=== PATIENT | female | born 2005 | race Hispanic/Latino ===

== ENCOUNTER 2025-06-11 09:57 | Inpatient (IN) | payer OTHER ==
[2025-06-10 12:48] LABS: Hematocrit 35.2 % (34.9-44.5); Hemoglobin 11.6 g/dL (12.0-15.5); Mean Corpuscular Hemoglobin 28.7 pg (27.0-33.0); Mean Corpuscular Volume 87.1 fL (81.6-98.3); Platelet Count 294 10x3/uL (150-450); Red Blood Cell (RBC) Count 4.04 10x6/uL (3.90-5.03); White Blood Cell (WBC) Count 7.22 10x3/uL (3.5-10.5)
[2025-06-10 13:35] LABS: HIV (1/2) Antibody/Antigen Non-Reactive (NonReactive); HIV 1/2 INDEX 0.10 S/CO (<1.00); Hep B Surf Ag Non-Reactive S/CO (NonReactive)
[2025-06-10 13:36] LABS: Syphilis Antibody Index 0.03 S/CO (<1.00 Non-Reactive)
[~2025-06-11 09:57] MED LIST: Azithromycin 500 MG in Sodium Chloride 0.9% 250 ML 250 ML IVPB SCH; Bicitra 30 ML UDCUP PO PRN; Carboprost 250 MCG/ML AMP IM PRN; Diphenoxylate HCl/Atropine Tablet PO PRN; Methylergonovine 0.2 MG/ML VIAL IM PRN; Ondansetron PF 4 MG/2 ML Vial IVP PRN; Oxytocin 30 units/NS 500 ML 500 ML IV SCH; Tranexamic Acid 1,000 MG/10 ML VIAL IVP PRN; hydrALAZINE 20 MG/ML VIAL SLOW IVP PRN
[2025-06-11 10:24] VITALS: BMI 32.8
[2025-06-11] MEDS ORDERED: Ondansetron PF 4 MG/2 ML Vial IVP PRN ×3 (10:40→15:51)
[2025-06-11] MEDS ORDERED: diphenhydrAMINE 50 MG/ML VIAL IVP PRN (10:40)
[2025-06-11] MEDS ORDERED: Meperidine HCl/PF 25 MG (1 mL) VIAL SLOW IVP PRN (10:40)
[2025-06-11] MEDS ORDERED: Communication Order-Pharmacy FS SCH (10:45)
[2025-06-11] MEDS: Famotidine/PF 20 mg/2ml Vial SLOW IVP PRN (11:25)
[2025-06-11] MEDS ORDERED: hydrALAZINE 20 MG/ML VIAL SLOW IVP PRN (15:51)
[2025-06-11] MEDS ORDERED: Oxytocin 30 units/NS 500 ML 500 ML IV SCH (15:51)
[2025-06-11] MEDS ORDERED: Boostrix 0.5 ML (Tdap) VIAL (>/=7 yrs of age) IM ONE (15:51)
[2025-06-11] MEDS ORDERED: Lanolin Ointment 7 GM TUBE TOP PRN (15:51)
[2025-06-11] MEDS ORDERED: HYDROcodone/Acetaminophen 5/325 mg Tablet PO PRN (15:51)
[2025-06-11] MEDS ORDERED: Methylergonovine 0.2 MG/ML VIAL IM PRN (15:51)
[2025-06-11] MEDS: Ondansetron PF 4 MG/2 ML Vial ONE (16:39)
[2025-06-11] MEDS: Phenylephrine 40 MG/NS 250 ML 250 ML ONE (16:39)
[2025-06-11] MEDS: Oxytocin 10 UNITS/ML VIAL ONE ×2 (16:39→16:40)
[2025-06-11] MEDS: PHENYLEPHRINE-NS 100 MCG/ML 10 ML SYRINGE ONE (16:39)
[2025-06-11] MEDS: Ketorolac Tromethamine 30 MG (1 mL) VIAL ONE (16:39)
[2025-06-11] MEDS: Ketorolac Tromethamine 30 MG (1 mL) VIAL IVP PRN (18:05)
[2025-06-11] MEDS ORDERED: Ketorolac Tromethamine 30 MG (1 mL) VIAL IVP SCH (19:30)
[2025-06-11] MEDS: Ferrous Sulfate 325 MG TAB PO SCH (22:05)
[2025-06-12] MEDS: diphenhydrAMINE 25 MG CAP PO PRN (00:31)
[2025-06-12] MEDS: Simethicone Chewable 80 MG TAB PO PRN (05:45)
[2025-06-12 05:53] LABS: Hematocrit 29.5 % (34.9-44.5); Hemoglobin 9.6 g/dL (12.0-15.5); Mean Corpuscular Volume 88.6 fL (81.6-98.3); Red Blood Cell (RBC) Count 3.33 10x6/uL (3.90-5.03); White Blood Cell (WBC) Count 7.71 10x3/uL (3.5-10.5)
[2025-06-12 05:54] LABS: Mean Corpuscular Hemoglobin 28.8 pg (27.0-33.0); Platelet Count 231 10x3/uL (150-450)
[2025-06-12] MEDS: HYDROcodone/Acetaminophen 5/325 mg Tablet PO PRN (14:08)
[2025-06-12] MEDS: Milk Of Magnesia 30 ML UDCUP PO SCH (16:55)
[2025-06-12] MEDS: Ibuprofen 800 MG TAB PO SCH (20:39)
[2025-06-13] MEDS ORDERED: Milk Of Magnesia 30 ML UDCUP PO PRN (09:16)
[2025-06-14 08:16] VITALS: BP 120/66; TEMP 98.1
== END 2025-06-14 11:30 | disposition home or self-care (01) | DRG 785 ==
LOC: CSHLD 09:57 → CSHPP 15:35
PROVIDERS: ADMIT Family Medicine; ATTEND Family Medicine
PROC: 10D00Z1 Extraction of Products of Conception, Low, Open Approach (ICD-10-PCS; principal; 2025-06-11)
PROC: 0UB70ZZ Excision of Bilateral Fallopian Tubes, Open Approach (ICD-10-PCS; 2025-06-11)
DX: O26.643 Intrahepatic cholestasis of pregnancy, third trimester (principal); O99.214 Obesity complicating childbirth; O99.02 Anemia complicating childbirth; O99.52 Diseases of the respiratory system complicating childbirth; Z37.0 Single live birth; Z30.2 Encounter for sterilization; O99.344 Other mental disorders complicating childbirth; F32.A Depression, unspecified; Z3A.37 37 weeks gestation of pregnancy; Z87.59 Personal history of other complications of pregnancy, childbirth and the puerperium
CPT/HCPCS: 51702; 85027; 86780; 86850; 86900; 86901; 87340; 87389; 88302; J1308; J1885; J2274; J2405; J2550; J2590